=== PATIENT | female | born 1985 | race Caucasian/White ===

== ENCOUNTER 2020-11-02 09:58 | Outpatient (REF) | payer OTHER, SELFPAY ==
[2020-11-02 12:01] LABS: Syphilis Screen Nonreactive (Nonreactive)
[2020-11-02 12:02] LABS: HBc Num1 0.06 S/CO (0.00-0.79); HIV AB/AG Nonreactive (Nonreactive); Hepatitis B Core Antibody Nonreactive (Nonreactive); ~HepC Num1 0.07 S/CO (0.00-0.79); ~Hepatitis C Antibody Nonreactive (Nonreactive)
[2020-11-02 13:58] LABS: CT PCR NOT DETECTED (Not Detect.); NG PCR NOT DETECTED (Not Detect.)
[2020-11-07 00:53] LABS: HPV mRNA E6/E7 rflx Not Detected (Not Detected)
== END 2020-11-02 09:59 | disposition home or self-care (01) ==
LOC: HO.LAB 09:58
PROVIDERS: PCP Physician Assistant; Visit Provider Advanced Practice Midwife
DX: Z01.419 Encounter for gynecological examination (general) (routine) without abnormal findings (principal); Z11.3 Encounter for screening for infections with a predominantly sexual mode of transmission; Z11.4 Encounter for screening for human immunodeficiency virus [HIV]; Z11.51 Encounter for screening for human papillomavirus (HPV); Z01.84 Encounter for antibody response examination; Z20.2 Contact with and (suspected) exposure to infections with a predominantly sexual mode of transmission
CPT/HCPCS: 36415; 86704; 86780; 86803; 87389; 87491; 87591; 87624; 88142

== ENCOUNTER → 2020-11-13 13:09 | Outpatient (BNVA) | payer OTHER, SELFPAY | PROVIDERS: PCP Physician Assistant; Visit Provider Obstetrics & Gynecology | DX: Z13.89 Encounter for screening for other disorder (principal) | CPT/HCPCS: 99212 ==

== ENCOUNTER → 2020-12-04 11:39 | Outpatient (BNVA) | payer OTHER, SELFPAY | PROVIDERS: PCP Physician Assistant; Visit Provider Obstetrics & Gynecology | DX: Z30.09 Encounter for other general counseling and advice on contraception (principal) | CPT/HCPCS: 99212 ==

== ENCOUNTER 2020-12-06 09:54 | Day surgery (SDC) | payer OTHER, SELFPAY ==
[2020-12-03 10:08] VITALS: BMI 21.9
--- NOTE | 2020-12-03 10:17 | P.CONAN_ITS ---
Documented by User: Ester Jennings 12/04/20 11:04 HPI - Anesthesia Eval Consult details Narrative: 35yo F for Bilateral Tubal Ligation Laparoscopic, salpingectomy Suboxone - H/O opioid abuse (Has appointment with prescriber to discussion duration to hold.) [facility] Past Medical History Medical History (Updated 12/06/20 @ 10:37 by Tyra Kim) History of kidney stones History of opioid abuse Family History Family History Maternal Grandmother Melanoma Surgical History Surgical History History of dilation and curettage Social History Social History (Updated 12/06/20 @ 10:38 by Tyra Kim) Are you a primary day care aide to a significant other at home: No Do you presently have visiting nurse or other home services: No Alcohol intake: never Patient Tobacco Use Status: Current everyday Tobacco user Tobacco use type: Cigarette Cigarettes Per Day: 10 Years Smoked: 15 Smoked in Last 30 Days: Yes Use of substances other than those prescribed or required for medical reasons: Yes Substance Use Type: Marijuana Substance Use Type Other:: current marijuana use former opiate use-taking suboxone Substance Use Frequency: Daily Last Used Substance: Days (ago) Last Used Substance Other:: 2 days ago Are you DNR?: No Advance Directives Information Provided: No Recently lost weight without trying: No Eating poorly because of decreased appetite: No Nutrition Risks: No Nutritional Risk Patient : No FDLMP: 11/26/20 Gender identity: female Meds Allergies Allergy/AdvReac Type Severity Reaction Status Date / Time shellfish derived Allergy Intermediate Rash Verified 12/04/20 11:41 doxycycline Allergy Nausea and Verified 12/06/20 10:34 Vomiting Home Medications Medication Instructions Recorded Confirmed Last Taken Type buprenorphine 12 mg-naloxone 3 mg 7.5 mg SUBLINGUAL BID 11/13/20 12/06/20 12/04/20 History sublingual film Exam Exam Date and Time: December 03, 2020 1017 Height,Weight and Vital Signs: Height 5 ft 7 in Weight 63.503 kg Assessment and Plan Assessment Anesthesia Assessment: Chart Reviewed Documented by User: Tyra Kim 12/06/20 10:40 [facility] Past Medical History Medical History (Updated 12/06/20 @ 10:37 by Tyra Kim) History of kidney stones History of opioid abuse Family History Family History Maternal Grandmother Melanoma Family history of problems with anesthesia: No Surgical History Surgical History History of dilation and curettage History of Problems with Anesthesia: No Social History Social History (Updated 12/06/20 @ 10:38 by Tyra Kim) Are you a primary day care aide to a significant other at home: No Do you presently have visiting nurse or other home services: No Alcohol intake: never Patient Tobacco Use Status: Current everyday Tobacco user Tobacco use type: Cigarette Cigarettes Per Day: 10 Years Smoked: 15 Smoked in Last 30 Days: Yes Use of substances other than those prescribed or required for medical reasons: Yes Substance Use Type: Marijuana Substance Use Type Other:: current marijuana use former opiate use-taking suboxone Substance Use Frequency: Daily Last Used Substance: Days (ago) Last Used Substance Other:: 2 days ago Are you DNR?: No Advance Directives Information Provided: No Recently lost weight without trying: No Eating poorly because of decreased appetite: No Nutrition Risks: No Nutritional Risk Patient : No FDLMP: 11/26/20 Gender identity: female Meds Allergies Allergy/AdvReac Type Severity Reaction Status Date / Time shellfish derived Allergy Intermediate Rash Verified 12/04/20 11:41 doxycycline Allergy Nausea and Verified 12/06/20 10:34 Vomiting Home Medications Medication Instructions Recorded Confirmed Last Taken Type buprenorphine 12 mg-naloxone 3 mg 7.5 mg SUBLINGUAL BID 11/13/20 12/06/20 12/04/20 History sublingual film Exam Height,Weight and Vital Signs: Vital Signs Temp Pulse Resp BP Pulse Ox 12/06/20 10:21 99.1 F 67 16 119/69 98 Pertinent Lab Results Pertinent Lab Results: Lab Results 12/06/20 Range/Units 10:00 Urine Test NEGATIVE (NEGATIVE) Airway Mallampati Class: II TM Dist: >3cm Neck ROM: Full Heart: RRR Lungs: CTAB Assessment and Plan Assessment Anesthesia Assessment: Anesthesia Plan Discussed and Chart Reviewed Final Anesthetic Review NPO: Yes ASA Class: II Final Preanesthetic Review: No Changes in Pt Med Stat, Meds/Allgs Chart Reviewed, Consent Obtained/Reviewed and Anes Risks/Benef Reviewed Patient Risk: Low Procedure Risk: Low Assessment/Block/Sedation in SS: Assess/Block/Sedation-SS Anesthetic Plan Anesthetic Plan: GA Disposition: Standard PACU
[2020-12-06] VITALS (10 sets, daily range): BP systolic 113–128; BP diastolic 68–78; PULSE 46–67; RESP 16–18; TEMP 36.3–37.3; O2SAT 98–100
[2020-12-06 10:16] LABS: UPreg QC Valid YES; Urine Pregnancy NEGATIVE (NEGATIVE)
[2020-12-06] MEDS: Lactated Ringers 1,000 ML 100 ML IVCONT (10:34)
--- NOTE | 2020-12-06 10:48 | MHC.SHP ---
Pre-Procedural Eval Section A The patient is an INPATIENT: No Changes since office visit: No Cold of Flu in the past 2 weeks, No New Medical Problems, No Changes in Medication and No Patient answered all questions The History & Physical has been completed within 30 days and I have reviewed it.: Yes Section B Chief Complaint: Unwanted Fertility Allergies: Allergies Allergy/AdvReac Type Severity Reaction Status Date / Time shellfish derived Allergy Intermediate Rash Verified 12/04/20 11:41 doxycycline Allergy Nausea and Verified 12/06/20 10:34 Vomiting Plan I have reviewed the history and physical and performed a pertinent physical examination on my patient. No changes have occurred unless specified.
--- NOTE | 2020-12-06 10:54 | W.PM.OPN ---
Operative Note Operative Note Date of Service: 12/06/20 Narrative: Pre-Procedure Diagnosis: unwanted fertility Post-Procedure Diagnosis: unwanted fertility Procedures performed: Laparoscopic bilateral salpingectomy [employer] Communications Engineer: none Complications: none Specimens: bilateral fallopian tubes Disposition: Pacu Ms. Dutton is a 35yo who has completed her family planning and desires a permanent form of sterilization. Surgical Risks: The patient was informed of the risks and benefits of the procedure. Risks included but were not limited to bleeding, infection, injury to the vulva, vagina, or cervix, and uterine perforation. The patient was counseled on the risk of sterilization failure being about 1% on average. The patient was informed that in the event a occurs, the risk of ectopic is increased. The patient expressed understanding of the risks involved, all questions were answered, and the patient consented to the procedure. The patient had valid sterilization consent at the time of the procedure. The patient was taken to the operating room where a time out was performed to confirm correct patient and correct procedure. General anesthesia was established. The patient was then positioned on the operating table in the dorsal lithotomy position with the legs supported using stirrups. All pressure points were padded and a Thiago hugger was placed to maintain control of core body temperature. The patient was then prepped and draped in the usual sterile fashion. A red rubber catheter was inserted and the bladder was emptied. A sponge stick was placed in the vagina for uterine manipulation. Attention was turned to the abdomen where a 5mm vertical infraumbilical incision was made. The 5mm trocar was attempted to be introduced under direct visualization using the laparoscopy within the sleeve of the trocar; however, intra-abdominal placement was not confirmed. The decision was made to proceed with a Quiros trocar. The incision was extended bilaterally with the scalpel for introduction of the Quiros. The fascia was grasped with chanda clamps and tented up and incised with weems scissors. The peritoneum was identified and grasped with hemostats, tented up, and entered sharply with metzenbaum scissors. The surgeon's gloved finger was then inserted and a curved S retractor was inserted above the surgeon's gloved finger. The Quiros was then placed below the S retractor. After intra-abdominal placement had been confirmed, the trocar was removed leaving the sleeve in place. The camera was introduced and pneumoperitoneum was established using carbon dioxide. Inspection of the abdominal cavity showed no gross abnormalities and there was no evidence of injury to the bowel, bladder, or vasculature. Attention was turned to the pelvis. The patient was placed into Trendelenburg position. The fallopian tubes and ovaries were visualized bilaterally. There were no abnormalities noted. A small incision was made on the patient's left approximately 2cm superior to and 2cm medial to the left ASIS. A 5mm trocar was introduced through this incision under direct visualization with the laparoscope. A small incision was made on the patient's right approximately 2cm superior to and 2cm medial to the right ASIS. A 5mm trocar was introduced through this incision under direct visualization with the laparoscope. The fallopian tubes were inspected bilaterally and the fimbriated ends of the fallopian tube were visualized bilaterally. The distal end of the left tube was grasped and lifted up and being careful to avoid the ovarian vessels, salpingectomy was performed walking the Ligasure device from the distal to the medial end of the tube, where it was cauterized and cut from the uterus at the cornua and removed through the trocar. The identical procedure was then performed on the right. The tubes were sent to pathology for analysis. The pneumoperitoneum was then evacuated. The laparoscope was removed and the trocar sleeves were removed. The sponge stick was removed from the vagina. The umbilical fascial incision was closed with a vertical mattress suture with 0-Vicryl. The skin was closed in a running non-locking fascia with 3-0 Vicryl. The lateral skin incisions were closed each with a single interrupted 3-0 Vicryl suture and Dermabond was applied. Good hemostasis was confirmed. The patient was transferred to the recovery room in stable condition. All needle, sponge, and instrument counts were noted to be correct x2 at the end of the procedure.
[2020-12-06] MEDS: fentaNYL citrate/PF 100 MCG/2 ML VIAL 25 MCG IVPUSH ×3 (12:28→12:52)
[2020-12-06] MEDS: Ketorolac Tromethamine 30 MG/ML VIAL IVPUSH (12:31)
[2020-12-06] MEDS: oxyCODONE HCl Immed Release 5 MG TABLET PO (12:39)
== END 2020-12-06 13:44 | disposition home or self-care (01) ==
LOC: HO.SSS 09:55
PROVIDERS: Nurse Practitioner; PCP Physician Assistant; Visit Provider Obstetrics & Gynecology
PROC: (CPT 58661; principal; 2020-12-06 11:50)
DX: Z30.2 Encounter for sterilization (principal); Z87.442 Personal history of urinary calculi; F11.20 Opioid dependence, uncomplicated; F12.90 Cannabis use, unspecified, uncomplicated; F17.210 Nicotine dependence, cigarettes, uncomplicated; Z88.1 Allergy status to other antibiotic agents
CPT/HCPCS: 58661; 81025; 88302; J0131; J1100; J1885; J2250; J2405; J3010

== ENCOUNTER → 2020-12-28 11:14 | Outpatient (BNVA) | payer OTHER, SELFPAY | PROVIDERS: Visit Provider Obstetrics & Gynecology ==

== ENCOUNTER 2021-07-24 12:18 | Outpatient (REF) | payer OTHER, SELFPAY ==
[2021-07-24 13:48] LABS: Appearance Urine HAZY; Color Urine YELLOW; Glucose Urine UA NEG (NEG); Leukocyte Esterase Urine NEG (NEG); Nitrite Urine NEG (NEG); Urine Blood NEG (NEG); Urine Ketones NEG (NEG); Urine Protein NEG (NEG-TRACE)
[2021-07-24 13:56] LABS: Amorphous Sediment Urine 4+ /LPF; RBC Urine 0 /HPF (0); Squamous Epithelial Cell Urine 4+ /LPF; WBC Urine 0 /HPF (0-4)
== END 2021-07-24 12:19 | disposition home or self-care (01) ==
LOC: HO.LAB 12:18
PROVIDERS: PCP Physician Assistant; Visit Provider Physician Assistant
DX: R30.0 Dysuria (principal)
CPT/HCPCS: 81001

== ENCOUNTER 2021-11-04 09:39 | Outpatient (REF) | payer OTHER, SELFPAY ==
[2021-11-04 16:54] LABS: CT PCR NOT DETECTED (Not Detect.); NG PCR NOT DETECTED (Not Detect.)
[2021-11-05 13:17] LABS: BV Int Neg Control Negative (Negative); BV Int Pos Control Positive (Positive)
[2021-11-07 18:31] LABS: HPV mRNA E6/E7 rflx Not Detected (Not Detected)
== END 2021-11-04 09:40 | disposition home or self-care (01) ==
LOC: HO.LAB 09:39
PROVIDERS: Advanced Practice Midwife; PCP Physician Assistant; Visit Provider Advanced Practice Midwife
DX: Z01.419 Encounter for gynecological examination (general) (routine) without abnormal findings (principal); Z11.51 Encounter for screening for human papillomavirus (HPV); Z20.2 Contact with and (suspected) exposure to infections with a predominantly sexual mode of transmission
CPT/HCPCS: 87480; 87491; 87510; 87591; 87624; 87660; 88142

== ENCOUNTER 2023-03-21 20:42 | Emergency (ER) | payer OTHER, SELFPAY ==
[2023-03-21 20:44] VITALS: BP 123/82; PULSE 56; RESP 16; TEMP 36.9; O2SAT 100; BMI 23.9
--- NOTE | 2023-03-21 20:45 | ED.GENADULT ---
HPI - General Adult General Chief complaint: Headache Stated complaint: ? sinus infection Time Seen by Provider: 03/21/23 23:17 Related Data Previous Rx's Medication Instructions Recorded valacyclovir 500 mg tablet 500 mg PO DAILY 30 days #30 tabs 03/09/23 Allergies Allergy/AdvReac Type Severity Reaction Status Date / Time shellfish derived Allergy Intermediate Rash Verified 11/04/21 09:49 doxycycline Allergy Nausea and Verified 11/04/21 09:49 Vomiting PMFSH Past Medical History Medical History History of kidney stones History of opioid abuse Surgical History History of dilation and curettage Family History Family History Maternal Grandmother Melanoma Mother Multiple sclerosis Social History Social History Housing: Apartment Are you a primary primary care sales representative to a significant other at home: No Do you presently have visiting nurse or other home services: No Alcohol intake: current Alcohol intake frequency: holidays/special occasions only Alcohol type: beer Patient Tobacco Use Status: Former Tobacco user Quit Date: 2017 Tobacco use type: Cigarette Cigarettes Per Day: 10 Years Smoked: 15 e-Cigarette/Vaping Use: Never Used Substance Use Type: Marijuana Advance Directives: No Current occupational status: employed 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 Plan for Covid and flu swabs Lab Data Labs: Lab Results 03/21/23 Range/Units 20:54 COVID-19 (AMANDA) Negative (Negative) COVID-19 Clin Com See Note Influenza Type A (ADRIANO) Negative (Negative) Influenza Type B (ADRIANO) Negative (Negative) Influenza A & B Note See Note Discharge Plan Discharge Clinical Impression: Headache Patient Disposition: Left W/O Completing Treatment Prescriptions: No Action valacyclovir 500 mg tablet 500 mg PO DAILY 30 Days Qty: 30 5RF Interventions: LWBS Worksheet Last Done: 03/21/23 22:40 Discharge Date/Time: 03/21/23 23:17
[2023-03-21 21:19] LABS: COVID-19 Test Negative (Negative); IDNOW Serial# 08D9AD1C; IDNOW Serial# 6674DD1D; Influenza A Negative (Negative)
[2023-03-21 21:20] LABS: Influenza B2 Negative (Negative)
--- NOTE | 2023-03-21 22:43 | PC.NURSE ---
reg saw pt leave. pt not in waiting room at this time [id number]
== END 2023-03-21 23:17 | disposition left against medical advice (07) ==
PROVIDERS: Physician Assistant; Emergency Provider Emergency Medicine; PCP Physician Assistant
DX: R51.9 Headache, unspecified (principal); Z20.822 Contact with and (suspected) exposure to COVID-19; F11.20 Opioid dependence, uncomplicated
CPT/HCPCS: 87502; 87635; 99281; 99283

== ENCOUNTER 2024-07-12 11:09 | Outpatient (AMB) | payer OTHER, SELFPAY ==
--- NOTE | 2024-07-12 11:08 | A.OFFVIS_ITS ---
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 Claims Representative Required: No Claims Representative Services: Claims Representative Present Information Interpreted: clinical only Director Of Food And Nutrition: Director Of Food And Nutrition Present Allergies shellfish derived Allergy (Intermediate, Verified 07/12/24 11:15) Rash doxycycline Allergy (Verified 07/12/24 11:15) Nausea and Vomiting Medication List - Last Reconciled 07/12/24 by Araseli Asif CNM valacyclovir 500 mg PO DAILY 30 days Is last menstrual period known: Yes Last menstrual period: 07/12/24 [facility] Medical History (Updated 07/12/24 @ 11:44 by Araseli Asif CNM) History of kidney stones History of opioid abuse Surgical History (Updated 07/12/24 @ 11:16 by Walt Guido CMA) History of bilateral tubal ligation History of dilation and curettage Family History Maternal Grandmother Melanoma Mother Multiple sclerosis Social History Housing: Apartment Are you a primary transitional care liaison to a significant other at home: No Do you presently have visiting nurse or other home services: No Alcohol intake: current Alcohol intake frequency: holidays/special occasions only Alcohol type: beer Patient Tobacco Use Status: Former Tobacco user Tobacco use type: Cigarette Cigarettes Per Day: 10 Years Smoked: 15 e-Cigarette/Vaping Use: Never Used Substance Use Type: Marijuana Current occupational status: employed 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 Gender identity: Female Cognitive needs: No Hearing needs: No Vision needs: Yes Female Reproductive History Menstrual Age of Menarche: 14 Date of last menstrual period: 07/12/24 control method: permanent sterilization Total pregnancies: 3 Full term: 3 Date of last pap smear: 11/04/21 (negative) History of abnormal pap smear: No Physical Exam Vital Signs: Last Vital Signs BP 118/78 07/12/24 11:14 BMI result Body Mass Index 23.9 Chest Chest palpation & inspection: normal inspection of the chest and normal palpation of entire chest wall Breast/axilla inspection: normal inspection of the breasts and normal inspection of the axillae Breast/axilla palpation: normal palpation of the breasts and normal palpation of the axillae Chest/axillae images: 2 1. Possible rubbery mass at 05:00 o'clock under right nipple, somewhat deep Results Reviewed Results Reviewed: Name: Mayco Dutton Age/Sex: 36/F Attending: Araseli Asif CNM : 1985 Submitted by: Araseli Asif CNM Copies to: Man Dietrich PA-C MR #: [id number] Status: DEP REF Collected: 11/04/21 Location: .LAB Received: 11/05/21 Interpretation Satisfactory for evaluation. No endocervical cells seen. Mild inflammation. Negative for intraepithelial lesion or malignancy. HPV mRNA E6/E7: NOT DETECTED This assay detects E6/E7 viral messenger RNA (mRNA) from 14 high-risk HPV types (16, 18, 31, 33, 35, 39, 45, 51, 52, 56, 58, 59, 66, 68) HPV testing performed by [facility], [place], [place]. See reference laboratory pion of the EMR for entire report. Clinical Information LMP: 10/14/21 Previous PAP test: 11/09, WNL Material Received ThinPrep-Cervical Copies To Man Dietrich PA-C [address] [place] [address] [address]. [address] [id number] Araseli Asif CNM [address] [place] [address] Dr. [address] [address] Electronically Signed By: HARRISON Hernandez (ASCP) 11/14/21 1234 The Pap Test is a screening procedure with the inherent possibility of both false negative and false positive results. Results should be interpreted in the context of historic and current clinical findings. Reliability of the Pap Test is enhanced by performing the test on a regular repetitive basis. Patient: Mayco Dutton Age/Sex: 36/F MR#: [id number] Page 1 of 1 Assessment & Plan Assessment & Plan (1) Pain of right breast: Comment: X2 months patient feels mass below right nipple.... Worse before menses. Code(s): N64.4 - Mastodynia Category: Medical Plan Patient has her menses and so did not want to have the pelvic exam today it started on Thursday today is now Thursday but she says heavy enough that she fill the tampon before coming. She was mainly concerned about a mass that she has felt in her right breast and she was waiting for this appointment to discuss it it is worse before her. She noted it when her seatbelt tightened done it a couple of months ago and also if her hugged her. She thought she felt a mass there below her right nipple it was a little hard for her to find today there is a possible rubbery mass at 05:00 o'clock. I am ordering a breast ultrasound and diagnostic bilateral mammogram as she is due for her screening mammograms in the fall and we will reschedule her full annual exam for after. Mammogram and breast ultrasound Reschedule her annual for after that Orders: Orders 2 US breast RT complete Today N64.4 - Mastodynia MM tomosynthesis diagnostic BI Today N64.4 - Mastodynia Coding Level of Care Code Est Pt Level 3 (46782) Diagnoses Pain of right breast N64.4
[2024-07-12 11:14] VITALS: BP 118/78; BMI 23.9
--- OUTSIDE RECORDS SUMMARY | 2024-07-12 12:51 | XMS_ITS | Clinical Summary ---
Author Organization [facility] it Address [address] [place] [address] Care Team Providers Care Tariff Counsel Name Role Phone Unavailable Primary Care Provider Unavailabl e Surgical History Surgery Date Site/Laterality Comments OTHER SURGICAL HISTORY PROCEDURE: DENIES PREVIOUS SURGERY Medical History Medical History Date Comments Depressive disorder, not els ewhere classified DX:Depressive disorder, not elsewhere classified Herpes simplex without menti on of complication DX:Herpes simplex without me ntion of complication Anxiety disorder in conditio ns classified elsewhere DX:Anxiety disorder in condi tions classified elsewhere Family History Medical History Relation Name Comments Heart attack Father @ 43 survived Other cancer Maternal Grandfather Lung cancer Maternal Grandmother Hypertension Mother Relation Name Status Comments Father Maternal Grandfather Maternal Grandmother Mother Social History Tobacco Use Types Packs/Day Years Used Date Smoking Tobacco: Every Day Cigarettes Alcohol Use Standard Drinks/Week Comments Yes 0 (1 standard drink = 0.6 oz pur e alcohol) Sex and Gender Information Value Date Recorded Sex Assigned at Not on file Gender Identity Not on file Sexual Orientation Not on file Obstetrics History Plan of Treatment Health Maintenance Due Date Last Done Comments DTaP,Tdap,and Td Vaccines (1 - Tdap) 2004 Hepatitis B Vaccines (1 of 3 - 19+ 3-dose series) 2004 Cervical Cancer Screening: P ap Smear 2006 HPV Vaccines (2 - 3-dose series) 07/08/2010 06/10/20 10 COVID-19 Vaccine (2023-2 5 season) 2024 Influenza Vaccine (#1) 2024 HIB Vaccines Aged Out No longer eligi ble based on patient's age to complete this topic Hepatitis A Vaccines Aged Out No long er eligible based on patient's age to complete this topic IPV Vaccines Aged Out No longer eligi ble based on patient's age to complete this topic MMR Vaccines Aged Out No longer eligi ble based on patient's age to complete this topic Meningococcal ACWY Vaccine Aged Out N o longer eligible based on patient's age to complete this topic Pneumococcal Vaccine: Pediat rics (0 to 5 Years) and At-Risk Patients (6 to 64 Years) Aged Out No longer eligi ble based on patient's age to complete this topic RSV Immunization Patients Un tuan 20 months Aged Out No longer eligible b ased on patient's age to complete this topic Varicella Vaccines Aged Out No longer eligible based on patient's age to complete this topic
== END 2024-07-12 11:45 | disposition home or self-care (01) ==
PROVIDERS: PCP Physician Assistant; Visit Provider Advanced Practice Midwife
DX: N64.4 Mastodynia (principal)
CPT/HCPCS: 99213

== ENCOUNTER → 2024-07-12 11:09 | Outpatient (BNVA) | payer OTHER, SELFPAY | PROVIDERS: PCP Physician Assistant; Visit Provider Advanced Practice Midwife | DX: Z01.419 Encounter for gynecological examination (general) (routine) without abnormal findings (principal); N64.4 Mastodynia | CPT/HCPCS: 99212 ==

== ENCOUNTER → 2024-08-19 09:30 | Outpatient (BNV) | payer OTHER, SELFPAY | PROVIDERS: PCP Physician Assistant; Visit Provider Internal Medicine | DX: N64.4 Mastodynia (principal); R92.333 Mammographic heterogeneous density, bilateral breasts | CPT/HCPCS: 76642; 77062; 77066 ==

== ENCOUNTER 2024-08-19 09:33 | Outpatient (REF) | payer OTHER, SELFPAY ==
--- NOTE | ~2024-08-19 | US_ITS ---
EXAMINATION: MM DIAGNOSTIC DIGITAL BREAST TOMOSYNTHESIS, BILATERAL Limited right breast ultrasound. CLINICAL INFORMATION: Baseline mammogram. Right breast pain lower inner quadrant for a couple months worse before her period. Palpable mass below right nipple at 5:00. COMPARISON: Mammography: Baseline. TECHNIQUE: Digital breast mammography with tomosynthesis is performed in both the craniocaudal and mediolateral oblique views along with computer-aided detection (CAD). Limited right breast ultrasound. FINDINGS: The breasts are heterogeneously dense, which may obscure small masses (ACR BI-RADS breast composition Category c). Left: No suspicious masses calcifications or other abnormal findings. Right: [place] marker denoting site of pain and palpable lump in the lower inner breast with an underlying 2 cm focal asymmetry at middle depth. Targeted color Doppler ultrasound scanning from 3-7 o'clock demonstrates normal fibronodular breast tissue. There is no sonographic abnormality. Results are provided to the patient at time of visit by the technologist. US/US breast RT limited mamm only IMPRESSION: Left: Negative. Right: Focal asymmetry in the lower inner breast middle depth at the site of patient's pain without sonographic correlate. Recommend stereotactic core needle biopsy at this time for confirmation given baseline mammography and symptoms are in this area of focal asymmetry. The findings and recommendations were discussed with the patient. Patient declines stereotactic core needle biopsy at this time. Patient prefers three-month follow-up mammogram for further evaluation. ASSESSMENT: BI-RADS BI-RADS 4 - Suspicious finding RECOMMENDATION: Biopsy recommended Patient declined biopsy at this time and 3 month follow-up will be ordered and scheduled for the patient. This patient's information was entered into a reminder system with a target due date for their next mammogram. Electronically signed by: India Redman DO 08/19/2024 10:55 AM [facility] [place]
--- OUTSIDE RECORDS SUMMARY | 2024-08-19 10:22 | XMS_ITS | Clinical Summary ---
Author Organization [facility] it Address [address] [place] [address] Care Team Providers Care Box Finisher Name Role Phone Unavailable Primary Care Provider [...] drink = 0.6 oz pur e alcohol) Comments Unknown Sex and Gender Information Value Date Recorded Sex Assigned at Not on file Legal Sex Female 2:49 AM EST Gender Identity Not on file Sexual Orientation [...] patient's age to complete this topic Meningococcal B Vacine Aged Out No lo nger eligible based on patient's age to complete [...]
== END 2024-08-19 09:34 | disposition home or self-care (01) ==
LOC: HO.MAMMO 09:33
PROVIDERS: PCP Physician Assistant; Visit Provider Advanced Practice Midwife
DX: N64.4 Mastodynia (principal)
CPT/HCPCS: 76642; 77062; 77066